=== PATIENT | male | born 1990 | race Caucasian/White ===

== ENCOUNTER 2025-06-21 10:04 | Emergency (ER) | payer BC ==
[~2025-06-21] VITALS: Ht 180.3 cm; Wt 98.0 kg
[2025-06-21 10:20] VITALS: BP 152/94; PULSE 80; RESP 16; TEMP 97.5; O2SAT 99
[2025-06-21] MEDS ORDERED: AMLO10TA13 PO (10:27)
--- NOTE | 2025-06-21 10:28 | Physician Documentation ---
HPI ~ General Chief Complaint: Medication Refill Stated Complaint: MED REQUEST Time Seen by MD: 10:18 History of Present Illness HPI Comments This is a 35-year-old male who presents requesting refill of his amlodipine due to moving to the area recently and not being able to establish primary care, patient reports that he has run out of his normal medication. Reports he has been stable on this dose of medication for some time. Medication Reconciliation Allergies: Coded Allergies: No Known Allergies (Unverified , 06/21/25) Scheduled Amlodipine Besylate (Amlodipine Besylate), 1 TAB PO DAILY Past Medical History Past Medical History: Hypertension Review of Systems ROS As stated above in the HPI, otherwise all systems are reviewed and negative. Physical Exam Physical Exam Vital Signs: Temperature: 97.5, Source: Temporal, Heart Rate: 80, Respiratory Rate: 16, BP: 152/94, Pulse Oximetry: 99, Weight: 98.000 Oxygen Flow Rate: 0 Physical Exam VITALS: Reviewed and as above. GENERAL: Alert, nontoxic appearing, no apparent distress. RESPIRATORY: No increased work of breathing, no respiratory distress, speaking in full clear sentences Progress Results/Orders Results/Orders Vital Signs 06/21/25 10:20 Temp 97.5 Pulse 80 Resp 16 B/P (MAP) 152/94 Pulse Ox 99 O2 Flow Rate 0 Medical Decision Making Additional info obtained from: old records Findings This is a 35-year-old male with a history of hypertension who presented requesting refill of amlodipine due to running out of previously prescribed medication, patient reported he is new to the areas not been able to reestablish primary care in order to continue management of hypertension medications. Patient reports he has been steady at this dose for some time with no reported complications. Patient did have elevated blood pressure though not to a level two suspect hypertensive emergency. Patient is otherwise well-appearing benign physical exam and appropriate for outpatient follow up, patient discharged with refill of amlodipine at previously prescribed dose and instructed to follow up with the primary care provider. Differential Dx:Considerations: Include: Adverse circumstances, Economic, Psychosocial, Medical services unavail., Medication refill, Medication non- compliance, Other (Hypertensive emergency) Departure Time of Disposition: 10:24 Disposition: 01 HOME / SELF CARE / HOMELESS Impression: Primary Impression: Medication refill Additional Impression: Hypertension Qualified Codes: I10 - Essential (primary) hypertension Condition: Improved Discharge Instructions: Medicine Refill at the Emergency Department Additional Instructions: Please establish with a primary care provider as soon as possible to manage your blood pressure medications. Take medication as prescribed. Please follow up with your primary care provider in the next few days. Please return to the emergency department for any new or worsening concerning symptoms. Referrals: NO PRIMARY CARE PROVIDER (PCP) Prescriptions Amlodipine Besylate (Amlodipine Besylate) 10 Mg Tablet 1 TAB PO DAILY for 30 Days, #30 TAB 1 Refill Prov: HANNAH TORIBIO 06/21/25 Education Educated: Patient Educated regarding: diagnosis, treatment, prognosis, need for follow up Signature Scribe Signature: No scribe Attestation: The note accurately reflects work and decisions made by me.PAU Ventura 06/21/25 11:22 HANNAH TORIBIO Jun 21, 2025 10:27
== END 2025-06-21 11:06 | disposition home or self-care (01) ==
LOC: ER 10:05
DX: I10 Essential (primary) hypertension (principal); Z76.0 Encounter for issue of repeat prescription
CPT/HCPCS: 99281

== ENCOUNTER 2025-09-17 19:33 | Emergency (ER) | payer BC ==
[~2025-09-17] VITALS: Ht 180.3 cm; Wt 99.8 kg
[~2025-09-17 19:33] MED LIST: AMLO10TA13 PO
[2025-09-17 19:40] VITALS: TEMP 98
--- NOTE | 2025-09-17 19:55 | ELECTROCARDIOGRAPH REPORT ---
[facility] Test Date: 2025-09-17 Test Time: 19:53:54 Pat Name: MAYRA ANG Department: [facility]- Patient ID: [facility]-[id number] Room: Gender: M Fruit Tester: : 1990 Requested By: MYRANDA ARRIETA Order Number: [id number] Reading MD: Dr. FLOWER Flynn Measurements Intervals Luther Rate: 83 P: 73 MD: 144 QRS: 74 QRSD: 79 T: 0 QT: 328 QTc: 386 Interpretive Statements Sinus rhythm Borderline T abnormalities, inferior leads Electronically Signed On 09-18-2025 18:42:[address] FLOWER Flynn Please click the below link to view image of tracing.
--- NOTE | 2025-09-17 23:19 | Physician Documentation ---
History of Present Illness ~ Chief Complaint: Hypertension Stated Complaint: HIGH BP Time Seen by MD: 23:11 HPI Patient presents to the emergency room for medication refill. He is on amlodipine and propranolol. He is not from the area and that has not have a PCP. Medication Reconciliation Allergies: Coded Allergies: No Known Allergies (Unverified , 09/17/25) Scheduled Amlodipine Besylate (Amlodipine Besylate), 1 TAB PO DAILY Past Medical History Past Medical History: Hypertension Review of Systems ROS All review of systems negative except as per HPI Physical Exam Vital Signs: Temperature: 98.0, Source: Oral, Heart Rate: 91, Respiratory Rate: 17, BP: 168/91, Pulse Oximetry: 98, Weight: 99.770 Physical Exam General: Patient is awake, alert, oriented x4 in no acute distress and well appearing.~ Head: Normocephalic and atraumatic. Eyes: Conjunctival normal. EOMI. PERRL. ENT: Mucous membranes moist. Neck: Supple, trachea is midline. Chest: Clear to auscultation bilaterally without rales, rhonchi, or wheezes. There is no accessory muscle use or retractions. Cardiac: RRR without murmurs, gallops, or rubs. Abd: Soft, nondistended, nontender, with normoactive bowel sounds. No guarding, rebound, or rigidity. Progress Results/Orders Results/Orders Completed Orders - CALVIN ULLOA MD Electrocardiogram (09/17/25 19:46) Vital Signs 09/17/25 19:40 Temp 98.0 Pulse 91 Resp 17 B/P (MAP) 168/91 Pulse Ox 98 Medical Decision Making Additional information obtaine: N/A Findings Patient presents to the emergency room requesting medication refill. We will refill that has medications with instructions to follow up with primary care provider. Differential Dx:Considerations: Include CHF, Include HTN, essential, Include HTN, accelerated, Include HTN, malignant, Include HTN, encephalopathy, Include medical noncompliance, Include medication withdrawal, Include pulmonary edema, Include renal failure, Include -induced, Include other Departure Disposition: 01 HOME / SELF CARE / HOMELESS Impression: Primary Impression: Medication refill Condition: Stable Discharge Instructions: Hypertension, Adult Referrals: NO PRIMARY CARE PROVIDER (PCP) Prescriptions Amlodipine Besylate (Amlodipine Besylate) 10 Mg Tablet 1 TABLET PO DAILY, #90 TABLET 1 Refill Prov: CALVIN ULLOA MD 09/17/25 Propranolol Hcl (Propranolol Hcl) 20 Mg Tablet 1 TAB PO Q12H for 30 Days, #120 TAB 0 Refills Prov: CALVIN ULLOA MD 09/17/25 Signature Scribe Signature: no scribe Attestation: The note accurately reflects work and decisions made by me.Calvin Ulloa MD 09/17/25 23:35 CALVIN ULLOA MD Sep 17, 2025 23:19
[2025-09-17] MEDS ORDERED: PROP20TA6 PO (23:35)
[2025-09-17] MEDS ORDERED: AMLO10TA PO (23:35)
[2025-09-17 23:50] VITALS: BP 136/90; PULSE 90; RESP 16; O2SAT 98
== END 2025-09-17 23:52 | disposition home or self-care (01) ==
LOC: ER 19:33
DX: I10 Essential (primary) hypertension (principal); Z76.0 Encounter for issue of repeat prescription; Z79.899 Other long term (current) drug therapy
CPT/HCPCS: 93005; 99283